=== PATIENT | female | born 2000 | race Two or more races ===

== ENCOUNTER 2021-03-07 20:30 | Emergency (ER) | payer OTHER ==
[~2021-03-07] VITALS: Ht 160 cm; Wt 77.1 kg
[2021-03-08] MEDS ORDERED: NAPROXEN375 MG PO (00:28)
== END 2021-03-08 00:41 | disposition home or self-care (01) ==
LOC: ER 20:30
DX: L02.416 Cutaneous abscess of left lower limb (principal)